=== PATIENT | male | born 1955 | race Caucasian/White ===

== ENCOUNTER 2017-07-04 22:04 | Emergency (ER) | payer MEDICARE, OTHER ==
[2017-07-04] MEDS ORDERED: Sodium Chloride 0.9% 10 ML Syringe FLUSH PRN (22:34)
[2017-07-04] MEDS ORDERED: Albuterol/Ipratropium 3.0-0.5 MG/3 ML Neb Soln NEB ONE (22:35)
[2017-07-04] MEDS ORDERED: methylPREDNISolone Sodium Succinate 125 MG/2 ML SDV IVPUSH ONE (22:38)
[2017-07-04] MEDS ORDERED: LORazepam 2 MG/ML SDV IVPUSH ONE (22:38)
[2017-07-04] MEDS ORDERED: Acetaminophen 325 MG Tab PO ONE (23:16)
[2017-07-05] MEDS ORDERED: Furosemide 40 MG/4 ML VIAL IVPUSH ONE (00:15)
[2017-07-05] MEDS ORDERED: Albuterol 0.083% 2.5 MG/3 ML Neb Soln NEB ONE (00:19)
--- NOTE | 2017-07-05 01:08 | EDM.PDOC ---
ED HPI GENERAL MEDICAL PROBLEM - General Chief Complaint: Cardiovascular Problem Stated Complaint: SOB Time Seen by Provider: 07/04/17 22:16 Source of Information: Reports: Patient, RN Notes Reviewed - History of Present Illness INITIAL COMMENTS - FREE TEXT/NARRATIVE: 61-year-old male comes in with shortness of breath, difficulty breathing. Been worsening over the past week or so and especially the last 2 or 3 days. He has not been sleeping well the last few nights, has had to have his head and chest elevated. He gets short of breath with any exertion or walking. He also is having a lot of difficulty with restless leg syndrome. Because of that he is smoking a lot and that also was not helping him. No chest pain. Abdominal pain nausea or vomiting. He is not really coughing any more than usual. No obvious fever or chills. Chest Pain Score (Numeric/FACES): 2 - Related Data Allergies Allergy/AdvReac Type Severity Reaction Status Date / Time No Known Allergies Allergy Verified 07/04/17 22:15 Home Meds: Home Meds Aspirin [Adult Low Dose Aspirin EC] 81 mg PO DAILY 07/04/17 [History] Carbidopa/Levodopa [Carbidopa-Levo ER 25-100] 1 tab PO DAILY 07/04/17 [History] Carvedilol 6.25 mg PO DAILY 07/04/17 [History] Cholecalciferol (Vitamin D3) [Vitamin D3] 1 tab PO DAILY 07/04/17 [History] Clopidogrel [Plavix] 75 mg PO DAILY 07/04/17 [History] Esomeprazole [NexIUM] 20 mg PO DAILY 07/04/17 [History] Furosemide [Lasix] 60 mg PO DAILY 07/04/17 [History] Gabapentin [Neurontin] 600 mg PO BEDTIME 07/04/17 [History] Levothyroxine Sodium [Synthroid] 225 mcg PO DAILY 07/04/17 [History] Lisinopril [Prinivil] 5 mg PO DAILY 07/04/17 [History] Methocarbamol [Robaxin-750] 2 tab PO BID 07/04/17 [History] Multivitamin [Multivitamins] 1 tab PO DAILY 07/04/17 [History] Potassium Chloride 8 meq PO DAILY 07/04/17 [History] Rotigotine [Neupro] 1 patch TOP DAILY 07/04/17 [History] Tamsulosin [Flomax] 1 tab PO DAILY 07/04/17 [History] atorvaSTATin [Lipitor] 40 mg PO DAILY 07/04/17 [History] Past Medical History Cardiovascular History: Reports: Heart Failure, High Cholesterol, Hypertension, [place], Stents Musculoskeletal History: Reports: Other (See Below) Other Musculoskeletal History: restless leg syndrome Dermatologic History: Reports: Psoriasis - Past Surgical History Neurological Surgical History: Reports: Other (See Below) Other Neurological Surgeries/Procedures: back surgery Social & Family History - Tobacco Use Smoking Status *Q: Current Every Day Smoker Years of Tobacco use: 40 Packs/Tins Daily: 1 - Caffeine Use Caffeine Use: Reports: Coffee, Soda - Recreational Drug Use Recreational Drug Use: No ED ROS GENERAL - Review of Systems Review Of Systems: See Below Constitutional: Denies: Fever, Chills HEENT: Denies: Throat Pain Respiratory: Reports: Shortness of Breath, Wheezing Cardiovascular: Reports: Dyspnea on Exertion. Denies: Chest Pain GI/Abdominal: Denies: Abdominal Pain, Nausea, Vomiting Musculoskeletal: Denies: Shoulder Pain, Arm Pain Skin: Reports: Rash (History chronic psoriasis) Neurological: Denies: Weakness (No focal weakness) ED EXAM, GENERAL - Physical Exam Exam: See Below General Appearance: Alert, Anxious, Moderate Distress Throat/Mouth: Normal Inspection Head: Atraumatic. No: Facial Swelling Neck: Supple, Full Range of Motion, Other Respiratory/Chest: Respiratory Distress (No JVD moderate tachypnea), Rales ( Mild to moderate bilateral), Wheezing (Mild bilateral) Cardiovascular: Regular Rate, Rhythm Extremities: Pedal Edema (Mild bilateral). No: Leg Pain Neurological: Alert, No Motor/Sensory Deficits Skin Exam: Warm, Dry Course - Vital Signs Last Recorded V/S: Last Vital Signs Temp 98.2 F 07/04/17 22:09 Pulse 81 07/04/17 22:09 Resp 18 07/04/17 22:09 BP 156/99 H 07/04/17 22:09 Pulse Ox 90 L 07/05/17 00:25 - Orders/Labs/Meds Orders: Active Orders 24 hr Category Date Time Status EKG 12 Lead [EKG Documentation Completion] [RC] STAT Care 07/04/17 22:39 Active Peripheral IV Care [RC] . DIRECTED Care 07/04/17 22:35 Active RT Aerosol Therapy [RC] ASDIRECTED Care 07/04/17 22:35 Active RT Aerosol Therapy [RC] ASDIRECTED Care 07/05/17 00:19 Active Chest 1V Frontal [CR] Stat Exams 07/04/17 22:35 Taken Sodium Chloride 0.9% [Saline Flush] Med 07/04/17 22:34 Active 10 ml FLUSH ASDIRECTED PRN Peripheral IV Insertion Adult [OM.PC] Stat Oth 07/04/17 22:35 Ordered Medication Orders Sodium Chloride (Saline Flush) 10 ml FLUSH ASDIRECTED PRN PRN Reason: Keep Vein Open Last Admin: 07/04/17 22:56 Dose: 10 ml Labs: Laboratory Tests 07/04/17 07/04/17 07/04/17 Range/Units 22:17 22:17 22:17 WBC 10.10 H (4.23-9.07) K/mm3 RBC 4.22 L (4.63-6.08) M/mm3 Hgb 13.7 (13.7-17.5) gm/L Hct 40.2 (40.1-51.0) % MCV 95.3 H (79.0-92.2) fl MCH 32.5 H (25.7-32.2) pg MCHC 34.1 (32.2-35.5) g/dl RDW Std Deviation 44.3 H (35.1-43.9) fL Plt Count 184 (163-337) K/mm3 MPV 11.0 (9.4-12.3) fl Neut % (Auto) 67.9 (34.0-67.9) % Lymph % (Auto) 18.4 L (21.8-53.1) % [place] % (Auto) 8.3 (5.3-12.2) % Eos % (Auto) 4.3 (0.8-7.0) Baso % (Auto) 0.9 (0.1-1.2) % Neut # (Auto) 6.86 H (1.78-5.38) K/mm3 Lymph # (Auto) 1.86 (1.32-3.57) K/mm3 [place] # (Auto) 0.84 H (0.30-0.82) K/mm3 Eos # (Auto) 0.43 (0.04-0.54) K/mm3 Baso # (Auto) 0.09 H (0.01-0.08) K/mm3 Sodium 136 (136-145) mEq/L Potassium 3.2 L (3.5-5.1) mEq/L Chloride 100 (98-107) mEq/L Carbon Dioxide 28 (21-32) mEq/L Anion Gap 11.2 (5-15) BUN 12 (7-18) mg/dL Creatinine 1.1 (0.7-1.3) mg/dL Est Cr Clr Drug Dosing 77.01 mL/min Estimated GFR (MDRD) > 60 (>60) mL/min BUN/Creatinine Ratio 10.9 L (14-18) Glucose 126 H (74-106) mg/dL Calcium 9.0 (8.5-10.1) mg/dL Total Bilirubin 0.5 (0.2-1.0) mg/dL AST 20 (15-37) U/L ALT 24 (16-63) U/L Alkaline Phosphatase 64 (46-116) U/L Troponin I < 0.017 (0.00-0.056) ng/mL C-Reactive Protein < 0.2 (<1.0) mg/dL NT-Pro-B Natriuret Pep 1385 H (0-125) pg/mL Total Protein 7.0 (6.4-8.2) g/dl Albumin 3.9 (3.4-5.0) g/dl Globulin 3.1 gm/dL Albumin/Globulin Ratio 1.3 (1-2) Meds: Medications Generic Name Dose Route Start Last Admin Trade Name Freq PRN Reason Stop Dose Admin Sodium Chloride 10 ml 07/04/17 22:34 07/04/17 22:56 Saline Flush FLUSH 10 ml ASDIRECTED PRN Administration Keep Vein Open Discontinued Medications Generic Name Dose Route Start Last Admin Trade Name Freq PRN Reason Stop Dose Admin Acetaminophen 975 mg 07/04/17 23:16 07/04/17 23:21 Tylenol PO 07/04/17 23:17 975 mg NOW ONE Administration Albuterol 2.5 mg 07/05/17 00:19 07/05/17 00:25 Proventil Neb Soln NEB 07/05/17 00:20 2.5 mg ONETIME ONE Administration Albuterol/Ipratropium 3 ml 07/04/17 22:35 04/30/18 22:44 Duoneb 3.0-0.5 Mg/3 Ml NEB 07/04/17 22:36 3 ml ONETIME ONE Administration Furosemide 60 mg 07/05/17 00:15 07/05/17 00:21 Lasix IVPUSH 07/05/17 00:16 60 mg NOW ONE Administration Lorazepam 0.5 mg 07/04/17 22:38 07/04/17 22:54 Ativan IVPUSH 07/04/17 22:39 0.5 mg ONETIME ONE Administration Methylprednisolone Sodium Succinate 125 mg 07/04/17 22:38 07/04/17 22:55 Solu-Medrol IVPUSH 07/04/17 22:39 125 mg ONETIME ONE Administration - Re-Assessments/Exams Free Text/Narrative Re-Assessment/Exam: 07/05/17 01:13 Chest x-ray does show cardiomegaly, bilateral pulmonary congestion compatible with moderate CHF. There is no evidence for pneumonia at this time. Sats were in the 96-98% range on arrival when standing. He did drop into the upper 80s to low 90s when sitting and lying. He is extremely restless on arrival, legs twitching almost constantly unable to sit or lay down. We did treat him initially with a DuoNeb and that did help his breathing. We did give him Ativan 0.5 mg orally just to help him relax and that did help him relax quite a bit. We have given Lasix 60 mg IV. With that he did just void around 700 mL of urine. He feels up to going home. His who apparently has a very strong nursing background is comfortable taking him home. We will increase his Lasix to 60 mg every morning and then again at noon for at least 2-3 days and then consider going to 40 and 40. [address] Borja tomorrow. Discharge instructions as documented. Departure - Departure Time of Disposition: 01:06 Disposition: Home, Self-Care 01 Condition: Fair Clinical Impression: Congestive heart failure Qualifiers: Heart failure type: combined systolic and diastolic Heart failure chronicity: acute on chronic Qualified Code(s): I50.43 - Acute on chronic combined systolic (congestive) and diastolic (congestive) heart failure Instructions: Heart Failure, [id number] Referrals: Mitch Borja Jr, MD [Primary Care Provider] - Forms: ED Department Discharge Additional Instructions: Increase furosemide to 60 mg every morning and then another 60 mg at noon for the next 2-3 days and then consider going to 40 mg every morning and [address] Borja at clinic Tuesday as planned. Try avoid salty food as best you can, try reduce smoking as best you can. Return to ED as needed if symptoms worsening in any way. - My Orders Last 24 Hours: My Active Orders 07/04/17 22:34 Sodium Chloride 0.9% [Saline Flush] 10 ml FLUSH ASDIRECTED PRN 07/04/17 22:35 Peripheral IV Care [RC] . DIRECTED RT Aerosol Therapy [RC] ASDIRECTED Chest 1V Frontal [CR] Stat Peripheral IV Insertion Adult [OM.PC] Stat 07/04/17 22:39 EKG 12 Lead [EKG Documentation Completion] [RC] STAT 07/05/17 00:19 RT Aerosol Therapy [RC] ASDIRECTED - Assessment/Plan Last 24 Hours: My Active Orders 07/04/17 22:34 Sodium Chloride 0.9% [Saline Flush] 10 ml FLUSH ASDIRECTED PRN 07/04/17 22:35 Peripheral IV Care [RC] . DIRECTED RT Aerosol Therapy [RC] ASDIRECTED Chest 1V Frontal [CR] Stat Peripheral IV Insertion Adult [OM.PC] Stat 07/04/17 22:39 EKG 12 Lead [EKG Documentation Completion] [RC] STAT 07/05/17 00:19 RT Aerosol Therapy [RC] ASDIRECTED
--- NOTE | 2017-07-05 06:51 | CR ---
Chest: Frontal view of the chest was obtained. Comparison: No prior study. Heart size at the upper limits of normal. Tortuous thoracic aorta is seen. Lung markings are mildly increased. Lungs otherwise are clear. Minimal atelectasis is noted along the right minor fissure. Bony structures are grossly intact. Impression: 1. Increased lung markings possibly due to pulmonary vascular congestion. Please correlate with the patient's symptoms. 2. Other incidental findings. Diagnostic code #3 Agree with preliminary report issued by [facility] ([facility] preliminary report dictated on 07/05/17, 1:21 AM Central Time)
== END 2017-07-05 01:26 | disposition home or self-care (01) ==
LOC: JD.ED 22:04
DX: I11.0 Hypertensive heart disease with heart failure (principal); I50.43 Acute on chronic combined systolic (congestive) and diastolic (congestive) heart failure; E78.00 Pure hypercholesterolemia, unspecified; I25.2 Old myocardial infarction; F17.210 Nicotine dependence, cigarettes, uncomplicated; Z79.82 Long term (current) use of aspirin; Z79.899 Other long term (current) drug therapy
CPT/HCPCS: 36415; 71045; 80053; 83880; 84484; 85025; 86140; 93005; 94640; 96374; 96375; 99285; A9270; J1940; J2060; J2930; J7050; 93010; 99284-25

== ENCOUNTER 2018-06-03 20:59 | Emergency (ER) | payer MEDICARE, OTHER ==
--- NOTE | 2018-06-03 21:19 | EDM.PDOC ---
ED HPI GENERAL MEDICAL PROBLEM - General Chief Complaint: Neuro Symptoms/Deficits Stated Complaint: LEFT SIDE WEAKNESS Time Seen by Provider: 06/03/18 21:06 Source of Information: Reports: Patient, Family (), RN Notes Reviewed History Limitations: Reports: No Limitations - History of Present Illness INITIAL COMMENTS - FREE TEXT/NARRATIVE: According to the patient and his , the patient developed sudden onset left- sided weakness around 20:00 this evening, while walking downstairs. He subsequently developed a slight headache en route to the ED. the patient's also notes that he was complaining of feeling dizzy on and off 3 days ago. The patient's notes that the patient had right upper extremity weakness at some point in the past, but that it resolved on its own. The patient is on Plavix and aspirin. Initial BP in the ED 118/84, with a HR of 74. Accu-Chek in the ED is 99. No recent surgeries. No history of seizures. The patient's PCP is Dr. Mitch Borja. Headache Pain Score (Numeric/FACES): 2 - Related Data Allergies Allergy/AdvReac Type Severity Reaction Status Date / Time No Known Allergies Allergy Verified 07/04/17 22:15 Home Meds: Home Meds Aspirin [Adult Low Dose Aspirin EC] 81 mg PO DAILY 07/04/17 [History] Carbidopa/Levodopa [Carbidopa-Levo ER 25-100] 1 tab PO DAILY 07/04/17 [History] Carvedilol 6.25 mg PO DAILY 07/04/17 [History] Cholecalciferol (Vitamin D3) [Vitamin D3] 1 tab PO DAILY 07/04/17 [History] Clopidogrel [Plavix] 75 mg PO DAILY 07/04/17 [History] Esomeprazole [NexIUM] 20 mg PO DAILY 07/04/17 [History] Furosemide [Lasix] 60 mg PO DAILY 07/04/17 [History] Gabapentin [Neurontin] 600 mg PO BEDTIME 07/04/17 [History] Levothyroxine Sodium [Synthroid] 225 mcg PO DAILY 07/04/17 [History] Multivitamin [Multivitamins] 1 tab PO DAILY 07/04/17 [History] Potassium Chloride 8 meq PO DAILY 07/04/17 [History] Tamsulosin [Flomax] 1 tab PO DAILY 07/04/17 [History] atorvaSTATin [Lipitor] 40 mg PO DAILY 07/04/17 [History] Cyclobenzaprine [Flexeril] 10 mg PO BEDTIME 06/03/18 [History] Gabapentin [Neurontin] 300 mg PO ASDIRECTED 06/03/18 [History] Losartan [Cozaar] 50 mg PO DAILY 06/03/18 [History] Past Medical History Cardiovascular History: Reports: CAD, Heart Failure, High Cholesterol, Hypertension, [place] (2013) Gastrointestinal History: Reports: GERD Genitourinary History: Reports: BPH Musculoskeletal History: Reports: Other (See Below) (Sciatica) Neurological History: Reports: Other (See Below) (Restless leg syndrome) Endocrine/Metabolic History: Reports: Hypothyroidism, Obesity/BMI 30+ Dermatologic History: Reports: Psoriasis - Past Surgical History HEENT Surgical History: Reports: Tonsillectomy Cardiovascular Surgical History: Reports: Coronary Artery Stent (x 2), Other ( See Below) (Coronary angiogram x 2) GI Surgical History: Reports: Appendectomy Neurological Surgical History: Reports: Lumbar Spine (fusion x 3) Musculoskeletal Surgical History: Reports: 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 ED EXAM, NEURO - Physical Exam Exam: See Below Exam Limited By: No Limitations General Appearance: Alert, WD/WN, No Apparent Distress Eye Exam: Bilateral Eye: EOMI, Normal Inspection Ears: Normal External Exam, Hearing Grossly Normal Nose: Normal Inspection Throat/Mouth: Normal Inspection, Normal Lips, Normal Voice, No Airway Compromise Head Exam: Atraumatic, Normocephalic Neck: Normal Inspection, Full Range of Motion Respiratory/Chest: No Respiratory Distress, Lungs Clear, Normal Breath Sounds, No Accessory Muscle Use Cardiovascular: Normal Peripheral Pulses, Regular Rate, Rhythm, No Edema, No Gallop, No JVD, No Murmur, No Rub GI/Abdominal: Normal Bowel Sounds, Soft, Non-Tender, No Organomegaly, No Distention, No Abnormal Bruit, No Mass, Other (Obese) (Male) Exam: Deferred Rectal (Males) Exam: Deferred Neurological: Alert, Oriented x 3, Other (weakness of shrugging of the left shoulder, when compared to the right. Weakness to flexion, extension, and abduction of the left shoulder, such that the patient is unable to lift his left upper extremity above his left shoulder. Weakness of flexion and extension of the left elbow. Weakness to left wrist strength. Mild decrease of left tag writer strength. No decreased sensation to the left upper extremity. Mild weakness to flexion and extension of the left hip and left knee. Dorsiflexion and plantar flexion of the left ankle appears to be about equal to the right. No decreased sensation to the left lower extremity.) Back Exam: Normal Inspection, Full Range of Motion, NT Extremities: Normal Inspection, Normal Range of Motion, No Pedal Edema, Normal Capillary Refill Psychiatric: Normal Affect Skin Exam: Warm, Dry, Intact, Normal Color, No Rash EKG INTERPRETATION EKG Date: 06/03/18 Time: 21:23 Rhythm: NSR Rate (Beats/Min): 81 [place]: RAD-Right [place] Deviation (likely 2 LPFB) P-Wave: Enlarged (LAE. 1 AVB.) QRS: Wide (Nonspecific intraventricular conduction delay. Late transition.) ST-T: Normal (Q-waves in lateral leads, but no ischemic changes.) QT: Normal Comparison: NA - No Prior EKG (07/04/2017) Course - Vital Signs Last Recorded V/S: Last Vital Signs Temp 37.1 C 06/03/18 21:19 Pulse 83 06/03/18 21:19 Resp 20 06/03/18 21:19 BP 118/84 06/03/18 21:19 Pulse Ox 95 06/03/18 21:19 - Orders/Labs/Meds Orders: Active Orders 24 hr Category Date Time Status EKG Documentation Completion [RC] STAT Care 06/03/18 21:14 Active Head wo Cont [CT] Stat Exams 06/03/18 21:13 Taken Labs: Laboratory Tests 06/03/18 06/03/18 06/03/18 Range/Units 21:09 21:25 21:25 WBC 7.42 (4.23-9.07) K/mm3 RBC 4.71 (4.63-6.08) M/mm3 Hgb 14.9 (13.7-17.5) gm/L Hct 44.4 (40.1-51.0) % MCV 94.3 H (79.0-92.2) fl MCH 31.6 (25.7-32.2) pg MCHC 33.6 (32.2-35.5) g/dl RDW Std Deviation 43.6 (35.1-43.9) fL Plt Count 213 (163-337) K/mm3 MPV 10.1 (9.4-12.3) fl Neutrophils % (Manual) 49 (40-60) % Band Neutrophils % 0 (0-10) % Lymphocytes % (Manual) 36 (20-40) % Atypical Lymphs % 0 % Monocytes % (Manual) 9 (2-10) % Eosinophils % (Manual) 6 (0.8-7.0) % Basophils % (Manual) 0 L (0.2-1.2) Platelet Estimate Adequate RBC Morph Comment Normal Sodium 136 (136-145) mEq/L Potassium 3.7 (3.5-5.1) mEq/L Chloride 99 (98-107) mEq/L Carbon Dioxide 31 (21-32) mEq/L Anion Gap 9.7 (5-15) BUN 14 (7-18) mg/dL Creatinine 1.5 H (0.7-1.3) mg/dL Est Cr Clr Drug Dosing 57.48 mL/min Estimated GFR (MDRD) 48 (>60) mL/min BUN/Creatinine Ratio 9.3 L (14-18) Glucose 88 (74-106) mg/dL POC Glucose 99 (70-105) mg/dL Calcium 9.6 (8.5-10.1) mg/dL Magnesium 1.9 (1.8-2.4) mg/dl Total Bilirubin 0.5 (0.2-1.0) mg/dL AST 23 (15-37) U/L ALT 23 (16-63) U/L Alkaline Phosphatase 82 (46-116) U/L Total Protein 7.9 (6.4-8.2) g/dl Albumin 4.1 (3.4-5.0) g/dl Globulin 3.8 gm/dL Albumin/Globulin Ratio 1.1 (1-2) Meds: Medications Discontinued Medications Generic Name Dose Route Start Last Admin Trade Name John PRN Reason Stop Dose Admin Alteplase, Recombinant 9 mg 06/03/18 22:09 06/03/18 22:18 Activase IV 06/03/18 22:10 9 mg .BOLUS ONE Administration Alteplase, Recombinant 81 mg 06/03/18 22:09 06/03/18 22:18 Activase IV 06/03/18 22:10 81 mg ASDIRECTED ONE Administration - Re-Assessments/Exams Free Text/Narrative Re-Assessment/Exam: 06/03/18 21:43 CT of the head without contrast is read by [facility] as "No acute intracranial abnormality." 06/03/18 22:08 Case discussed with Yasmin at [facility] at 21:45. The CT images were pushed to [facility] at 21:48. Case then discussed with Dr. Apodaca, stroke Neurologist at [facility], at 21:55. He recommended that we give the patient tPA, then transfer him to their facility. 06/03/18 22:15 The above recommendations were discussed with the patient and his . The patient has agreed to proceed with tPA and transfer to [place]. The patient will need to go by fixed wing, however, flight is checking the weather presently. 06/03/18 22:37 Notified that the patient is now able to lift his left upper extremity above his head. Departure - Departure Time of Disposition: 22:18 Disposition: DC/Tfer to Acute Hospital 02 Condition: Fair Clinical Impression: Stroke - Discharge Information *PRESCRIPTION DRUG MONITORING PROGRAM REVIEWED*: Not Applicable *COPY OF PRESCRIPTION DRUG MONITORING REPORT IN PATIENT IRENE: Not Applicable Referrals: Mitch Borja Jr, MD [Primary Care Provider] - - My Orders Last 24 Hours: My Active Orders 06/03/18 21:13 Head wo Cont [CT] Stat 06/03/18 21:14 EKG Documentation Completion [RC] STAT - Assessment/Plan Last 24 Hours: My Active Orders 06/03/18 21:13 Head wo Cont [CT] Stat 06/03/18 21:14 EKG Documentation Completion [RC] STAT
--- NOTE | 2018-06-04 13:07 | CT ---
Head CT Technique: Multiple axial sections through the brain were obtained. Intravenous contrast was not utilized. Comparison: No prior intracranial imaging is available. Findings: Ventricles along with basal cisterns and sulci over the convexities appear within normal limits for the patient's age. No abnormal parenchymal densities are seen. No evidence of intracranial hemorrhage. No midline shift or mass effect is seen. Bone window settings were reviewed which show no acute calvarial abnormality. Minimal areas of mucosal thickening are seen within the sphenoid sinus which are felt to be incidental. Impression: 1. Minimal mucosal thickening within the sphenoid sinus which is felt to be incidental. 2. No acute intracranial abnormality is identified. Diagnostic code #2 I agree with preliminary report from [facility], finalized on 06/03/18, 10:25 PM Central Time
== END 2018-06-03 23:20 ==
LOC: JD.ED 20:59
DX: I63.9 Cerebral infarction, unspecified (principal); F17.210 Nicotine dependence, cigarettes, uncomplicated; I11.0 Hypertensive heart disease with heart failure; I50.9 Heart failure, unspecified; E78.00 Pure hypercholesterolemia, unspecified; I25.10 Atherosclerotic heart disease of native coronary artery without angina pectoris; I25.2 Old myocardial infarction; K21.9 Gastro-esophageal reflux disease without esophagitis; E03.9 Hypothyroidism, unspecified; Z79.82 Long term (current) use of aspirin; Z79.899 Other long term (current) drug therapy
CPT/HCPCS: 36415; 70450; 80053; 82962; 83735; 85007; 85027; 93005; 96365; 99285; J2997; 93010